=== PATIENT | female | born 1980 | race Caucasian/White ===

== ENCOUNTER 2017-08-26 17:50 | Emergency (ER) | payer OTHER ==
[~2017-08-26] VITALS: Ht 154.9 cm; Wt 44.2 kg
[~2017-08-26 17:50] MED LIST: ADVAIR HFA120 INHALA IH; LEVOFLOXACIN500 MG PO; NICOTINE PATCH1 EAC2 TD; PROAIR HFA8.5 GM IH; RAYOS5 MG PO
[2017-08-26] MEDS ORDERED: VIBRAMYCIN100 MG PO (18:29)
[2017-08-26 18:49] VITALS: BP 00/0
== END 2017-08-26 18:51 | disposition home or self-care (01) ==
LOC: EME 17:50
DX: A53.9 Syphilis, unspecified (principal); K50.90 Crohn's disease, unspecified, without complications; F17.200 Nicotine dependence, unspecified, uncomplicated; Z88.0 Allergy status to penicillin
CPT/HCPCS: 99281; 99283